=== PATIENT | female | born 1990 ===

== ENCOUNTER 2022-08-02 10:50 | Emergency (ER) | payer OTHER ==
[2022-08-02] MEDS ORDERED: KETOROLAC 15 MG/ML 1 ML VIAL IVP STA (14:48)
[2022-08-02] MEDS ORDERED: SODIUM CHLORIDE 0.9% 1,000 ML IV STA (14:48)
[2022-08-02] MEDS ORDERED: FAMOTIDINE 20 MG/2 ML VIAL IV STA (14:48)
[2022-08-02 15:25] VITALS: RESP 18
--- NOTE | 2022-08-02 15:30 | ED ---
Abdominal Pain HPI - General Source: patient, RN notes reviewed Mode of arrival: ambulatory Limitations: no limitations - History of Present Illness MD Complaint: abdominal pain Onset/Timin -: week(s) Location: LUQ Radiation: back Associated Symptoms: diarrhea <Lisa Ryan - Last Filed: 08/02/22 17:00> <Louis Flores - Last Filed: 08/02/22 17:34> - General Chief Complaint: Abdominal Pain Stated Complaint: abd pain Time Seen by Provider: 08/02/22 13:13 - History of Present Illness Initial Comments: This is a 32-year-old female who presents to the emergency department for abdominal pain. States that she has had intermittent left upper quadrant pain for approximately one week, however it became very severe yesterday. She does have some radiation into the back as well. States that it feels like something is "moving in her stomach". She had associated diarrhea as well. Denies any fevers, nausea, or vomiting. She has never had symptoms like this in the past. Denies any fevers, chills, sore throat, cough, dyspnea, chest pain, palpitations, nausea, vomiting, or headaches. (Lisa Ryan) - Related Data Allergies Allergy/AdvReac Type Severity Reaction Status Date / Time No Known Allergies Allergy Verified 08/02/22 11:35 Review of Systems ROS Other: All systems not noted in ROS Statement are negative. <Lisa Ryan - Last Filed: 08/02/22 17:00> ROS Other: All systems not noted in ROS Statement are negative. <Louis Flores - Last Filed: 08/02/22 17:34> ROS Statement: Those systems with pertinent positive or pertinent negative responses have been documented in the HPI. Past Medical History Past Medical History: Asthma History of Any Multi-Drug Resistant Organisms: None Reported Past Surgical History: Appendectomy, Orthopedic Surgery Past Psychological History: No Psychological Hx Reported Smoking Status: Never smoker Past Alcohol Use History: None Reported Past Drug Use History: None Reported <Lisa Ryan - Last Filed: 08/02/22 17:00> General Exam Limitations: no limitations General appearance: alert, in no apparent distress Head exam: Present: atraumatic, normocephalic, normal inspection Respiratory exam: Present: normal lung sounds bilaterally. Absent: respiratory distress, wheezes, rales, rhonchi, stridor Cardiovascular Exam: Present: regular rate, normal rhythm, normal heart sounds. Absent: systolic murmur, diastolic murmur, rubs, gallop, clicks GI/Abdominal exam: Present: soft, tenderness (LUQ and epigastric), normal bowel sounds. Absent: distended Back exam: Present: tenderness (Left mid to upper back) Neurological exam: Present: alert, oriented X3, CN II-XII intact Psychiatric exam: Present: normal affect, normal mood Skin exam: Present: warm, dry, intact, normal color. Absent: rash <Lisa Ryan - Last Filed: 08/02/22 17:00> Course Vital Signs 08/02/22 08/02/22 11:32 15:24 Temperature 98.3 F Pulse Rate 91 83 Respiratory 20 18 Rate Blood Pressure 121/78 129/85 O2 Sat by Pulse 100 99 Oximetry Medical Decision Making - Lab Data Result diagrams: 08/02/22 15:00 - Radiology Data Radiology results: report reviewed, image reviewed <Lisa Ryan - Last Filed: 08/02/22 17:00> - Lab Data Result diagrams: 08/02/22 15:00 08/02/22 16:50 <Louis Flores - Last Filed: 08/02/22 17:34> - Medical Decision Making This is a 32-year-old female who presents to the emergency department for abdominal pain. Initial presentation concerning for pancreatitis. Lab work including CBC, CMP, amylase, and lipase ordered. Ultrasound of the abdomen obtained as well. CBC reveals no leukocytosis. Urinalysis negative. Ultrasound revealed a possible nonobstructing renal calculus. However, it unfortunately made no mention of the pancreas. Patient given IV fluids, Toradol, and Pepcid. Case signed out to ED attending pending results of the additional labs. (Lisa Ryan) Patient care sent out to me by previous shift physician funeral director's assistant, Shawna lewis. Briefly, patient is a 32-year-old female presents emergency Department with left-sided abdominal pain and diarrhea. CBC shows no acute processes. Urinalysis is negative. Ultrasound the left upper quadrant shows no acute processes. Plan at sign out was to follow with pending labs to evaluate patient and determine final disposition. Laboratory evaluation unremarkable. Patient reevaluated at bedside at 5:30 PM found to be stable medical condition. It's point there is no clear obvious source patient's symptoms however she is no high-risk features. She is well- appearing. Patient be discharged to follow-up with primary care doctor. She does not have a primary care doctor she is given referral to several that she can choose from. He takes antacids that she is told to continue taking. (Louis Flores) - Lab Data Lab Results 08/02/22 08/02/22 08/02/22 Range/Units 15:00 15:00 15:00 WBC 8.9 (3.8-10.6) k/uL RBC 4.60 (3.80-5.40) m/uL Hgb 12.3 (11.4-16.0) gm/dL Hct 38.9 (34.0-46.0) % MCV 84.5 (80.0-100.0) fL MCH 26.7 (25.0-35.0) pg MCHC 31.6 (31.0-37.0) g/dL RDW 16.5 H (11.5-15.5) % Plt Count 492 H (150-450) k/uL MPV 6.7 Neutrophils % 63 % Lymphocytes % 29 % Monocytes % 4 % Eosinophils % 2 % Basophils % 0 % Neutrophils # 5.7 (1.3-7.7) k/uL Lymphocytes # 2.6 (1.0-4.8) k/uL Monocytes # 0.4 (0-1.0) k/uL Eosinophils # 0.2 (0-0.7) k/uL Basophils # 0.0 (0-0.2) k/uL Hypochromasia Slight Anisocytosis Slight Sodium (137-145) mmol/L Potassium (3.5-5.1) mmol/L Chloride (98-107) mmol/L Carbon Dioxide (22-30) mmol/L Anion Gap mmol/L BUN (7-17) mg/dL Creatinine (0.52-1.04) mg/dL Est GFR (CKD-EPI)AfAm (>60 ml/min/1.73 sqM) Est GFR (CKD-EPI)NonAf (>60 ml/min/1.73 sqM) Glucose (74-99) mg/dL Calcium (8.4-10.2) mg/dL Total Bilirubin (0.2-1.3) mg/dL AST (14-36) U/L ALT (4-34) U/L Alkaline Phosphatase (38-126) U/L Total Protein (6.3-8.2) g/dL Albumin (3.5-5.0) g/dL Lipase (23-300) U/L Urine Color Light Yellow Urine Appearance Clear (Clear) Urine pH 7.0 (5.0-8.0) Ur Specific [place] 1.016 (1.001-1.035) Urine Protein Negative (Negative) Urine Glucose (UA) Negative (Negative) Urine Ketones Negative (Negative) Urine Blood Negative (Negative) Urine Nitrite Negative (Negative) Urine Bilirubin Negative (Negative) Urine Urobilinogen <2.0 (<2.0) mg/dL Ur Leukocyte Esterase Negative (Negative) Urine HCG, Qual Not Detected (Not Detectd) 08/02/22 Range/Units 16:50 WBC (3.8-10.6) k/uL RBC (3.80-5.40) m/uL Hgb (11.4-16.0) gm/dL Hct (34.0-46.0) % MCV (80.0-100.0) fL MCH (25.0-35.0) pg MCHC (31.0-37.0) g/dL RDW (11.5-15.5) % Plt Count (150-450) k/uL MPV Neutrophils % % Lymphocytes % % Monocytes % % Eosinophils % % Basophils % % Neutrophils # (1.3-7.7) k/uL Lymphocytes # (1.0-4.8) k/uL Monocytes # (0-1.0) k/uL Eosinophils # (0-0.7) k/uL Basophils # (0-0.2) k/uL Hypochromasia Anisocytosis Sodium 138 (137-145) mmol/L Potassium 4.1 (3.5-5.1) mmol/L Chloride 103 (98-107) mmol/L Carbon Dioxide 23 (22-30) mmol/L Anion Gap 12 mmol/L BUN 12 (7-17) mg/dL Creatinine 0.63 (0.52-1.04) mg/dL Est GFR (CKD-EPI)AfAm >90 (>60 ml/min/1.73 sqM) Est GFR (CKD-EPI)NonAf >90 (>60 ml/min/1.73 sqM) Glucose 77 (74-99) mg/dL Calcium 8.8 (8.4-10.2) mg/dL Total Bilirubin 0.2 (0.2-1.3) mg/dL AST 22 (14-36) U/L ALT 25 (4-34) U/L Alkaline Phosphatase 70 (38-126) U/L Total Protein 6.6 (6.3-8.2) g/dL Albumin 3.8 (3.5-5.0) g/dL Lipase 66 (23-300) U/L Urine Color Urine Appearance (Clear) Urine pH (5.0-8.0) Ur Specific [place] (1.001-1.035) Urine Protein (Negative) Urine Glucose (UA) (Negative) Urine Ketones (Negative) Urine Blood (Negative) Urine Nitrite (Negative) Urine Bilirubin (Negative) Urine Urobilinogen (<2.0) mg/dL Ur Leukocyte Esterase (Negative) Urine HCG, Qual (Not Detectd) Disposition <Lisa Ryan - Last Filed: 08/02/22 17:00> Is patient prescribed a controlled substance at d/c from ED?: No Time of Disposition: 17:34 <Louis Flores - Last Filed: 08/02/22 17:34> Clinical Impression: LUQ pain Disposition: HOME SELF-CARE Condition: Good Instructions (If sedation given, give patient instructions): Abdominal Pain (ED) Referrals: Bekah Graves MD [REFERRING] - 1-2 days Bushra Win MD [STAFF PHYSICIAN] - 1-2 days Loy Conner MD [REFERRING] - 1-2 days
[2022-08-02 15:37] LABS: Anisocytosis Slight; Basophils % (A) 0 %; Eosinophils # (A) 0.2 k/uL (0-0.7); Eosinophils % (A) 2 %; HCT 38.9 % (34.0-46.0); HGB 12.3 gm/dL (11.4-16.0); Hypochromasia Slight; Lymphocytes # (A) 2.6 k/uL (1.0-4.8); Lymphocytes % (A) 29 %; MCH 26.7 pg (25.0-35.0); MCHC 31.6 g/dL (31.0-37.0); MCV 84.5 fL (80.0-100.0); Mean Platelet Volume 6.7; Monocytes # (A) 0.4 k/uL (0-1.0); Monocytes % (A) 4 %; Neutrophils # (A) 5.7 k/uL (1.3-7.7); Neutrophils % (A) 63 %; Platelet Count 492 k/uL (150-450); RDW 16.5 % (11.5-15.5); WBC 8.9 k/uL (3.8-10.6)
[2022-08-02 15:39] LABS: Appearance,Urine Clear (Clear); Bilirubin,Urine Negative (Negative); Blood,Urine Negative (Negative); Color,Urine Light Yellow; Glucose,Urine (UA) Negative (Negative); Ketones,Urine Negative (Negative); Leukocyte Esterase,Urine Negative (Negative); Nitrite,Urine Negative (Negative); Protein,Urine Negative (Negative); Specific Gravity,Urine 1.016 (1.001-1.035); Urobilinogen,Urine <2.0 mg/dL (<2.0)
--- NOTE | 2022-08-02 16:59 | US ---
EXAMINATION TYPE: US abdomen limited DATE OF EXAM: 08/02/2022 COMPARISON: NONE CLINICAL HISTORY: LUQ and epigastric pain. LUQ pain TECHNIQUE: Multiple sonographic images of the left upper quadrant are obtained. FINDINGS: EXAM MEASUREMENTS: Spleen: 8.6 cm Left Kidney: 9.8 x 4.7 x 5.2 cm [employer] NOTES: 1. Spleen: wnl 2. Left Kidney: No evidence of hydro, possible 7mm renal calculus lower pole IMPRESSION: 1. Left nonobstructing renal calculus. 2. No evidence of hydronephrosis.
[2022-08-02 17:24] LABS: ALT 25 U/L (4-34); AST 22 U/L (14-36); African American GFR (CKD) >90 (>60 ml/min/1.73 sqM); Albumin 3.8 g/dL (3.5-5.0); Alkaline Phosphatase 70 U/L (38-126); Anion Gap 12 mmol/L; Blood Urea Nitrogen 12 mg/dL (7-17); Calcium 8.8 mg/dL (8.4-10.2); Carbon Dioxide 23 mmol/L (22-30); Chloride 103 mmol/L (98-107); Glucose 77 mg/dL (74-99); Lipase 66 U/L (23-300); Non-African American GFR(CKD) >90 (>60 ml/min/1.73 sqM); Potassium 4.1 mmol/L (3.5-5.1); Sodium 138 mmol/L (137-145); Total Bilirubin 0.2 mg/dL (0.2-1.3); Total Protein 6.6 g/dL (6.3-8.2)
[2022-08-02 18:03] VITALS: BP 127/77; PULSE 75; TEMP 98.2
== END 2022-08-02 18:02 | disposition home or self-care (01) ==
LOC: EC 10:50
DX: N20.0 Calculus of kidney (principal); J45.909 Unspecified asthma, uncomplicated
CPT/HCPCS: 36415; 80053; 83690; 85025; 81003; 81025; 76705; 96374; 96375; 96361; 99284; J1885